=== PATIENT | female | born 1990 | race Caucasian/White ===

== ENCOUNTER 2016-09-18 15:40 | Emergency (ER) | payer OTHER ==
[~2016-09-18] VITALS: Ht 160 cm; Wt 70.0 kg
[2016-09-18 15:42] VITALS: BP 136/89; PULSE 72; RESP 16; TEMP 98.4; O2SAT 99
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
[2016-09-18] MEDS ORDERED: IBUPROFEN 800 MG TAB PO ONE (18:15)
[2016-09-18] MEDS ORDERED: ACETAMINOPHEN 500 MG CPLT PO ONE (18:15)
[2016-09-18] MEDS ORDERED: ORPHENADRINE CITRATE 100 MG SUSTAINED RELEASE TAB PO ONE (18:15)
[2016-09-18] MEDS ORDERED: IBUP-232 PO (18:17)
[2016-09-18] MEDS ORDERED: OMEP40CA2 PO (18:17)
[2016-09-18] MEDS ORDERED: NON-500T13 PO (18:17)
[2016-09-18] MEDS ORDERED: ORPH100T99 PO (18:18)
== END 2016-09-18 18:40 | disposition home or self-care (01) ==
LOC: NEPD 15:40
DX: S16.1XXA Strain of muscle, fascia and tendon at neck level, initial encounter (principal); V89.2XXA Person injured in unspecified motor-vehicle accident, traffic, initial encounter; Z90.5 Acquired absence of kidney
CPT/HCPCS: 70450; 72125; 99285